=== PATIENT | male | born 1950 | race Caucasian/White ===

== ENCOUNTER 2024-05-16 20:22 | Emergency (ER) | payer MEDICARE, BC, SELFPAY ==
--- NOTE | ~2024-05-16 | XR_ITS ---
XR chest 1V portable Ordering provider: Franky Ramos History: 74 years Male with . CHEST PAIN . Comparison: None. FINDINGS: MEDIASTINUM: The cardiac silhouette is not enlarged. LUNGS: No infiltrates, effusions or pneumothorax. OTHER: No free air under the diaphragm. Degenerative changes of the spine. IMPRESSION: No acute cardiopulmonary pathology. Reviewed, dictated and finalized at location A. N FILTERER
--- NOTE | 2024-05-16 20:23 | ECG_ITS ---
Test Date: 2024-05-16 20:29:15 Measurements Intervals [place] Rate: 71 P: 10 MS: 124 QRS: -88 QRSD: 179 T: 38 QT: 442 QTc: 481 Interpretive Statements SINUS RHYTHM WITH OCCASIONAL VENTRICULAR PREMATURE COMPLEXES WITH OCCASIONAL SUPRAVENTRICULAR PREMATURE COMPLEXES RIGHT BUNDLE BRANCH BLOCK [120+ ms QRS DURATION, UPRIGHT V1, 40+ ms S IN I/aVL/V4/V5/V6] LEFT ANTERIOR FASCICULAR BLOCK [QRS AXIS <= -45, QR IN I, RS IN II] ABNORMAL ECG Electronically Signed On 05-17-2024 08:26:53 [employer]ISHING [employer]PECTOR by Chad Padilla M.D.
[2024-05-16 20:26] VITALS: BP 69/54; PULSE 78; RESP 18; TEMP 35.9; O2SAT 98
[2024-05-16 20:48] LABS: Basophils Percent Auto 0.2 % (0.2-1.2); Eosinophils Absolute Auto 0.1 K/mm3 (0-0.3); Eosinophils Percent Auto 1.1 % (0-4.4); Hemoglobin 14.1 g/dL (14.0-18.0); Immature Granulocyte Absolute 0.02 K/mm3 (0.00-0.031); Immature Granulocyte Percent A 0.5 % (0-0.5); Lymphocytes Absolute Auto 0.66 K/mm3 (0.9-3.2); Mean Corpuscular HGB Conc 34.4 g/dl (32-36); Mean Corpuscular Hemoglobin 30.9 pg (26-34); Mean Corpuscular Volume 89.9 fl (80-100); Mean Platelet Volume 9.3 fl (7.4-10.4); Monocytes Absolute Auto 0.3 K/mm3 (0.1-0.6); Monocytes Percent Auto 5.9 % (2.6-8.5); Neutrophils Absolute Auto 3.4 K/mm3 (1.3-6.7); Neutrophils Percent Auto 77.3 % (45.5-73.1); Platelet Count Result 105 k/mm3 (150-375); Red Blood Count 4.56 M/mm3 (4.6-6.20); Red Cell Distribution Width 15.2 % (11.5-14.5); White Blood Count 4.4 K/mm3 (4.5-10.0)
[2024-05-16 20:58] LABS: Alanine Aminotransferase 21 U/L (6-50); Alkaline Phosphatase 53 U/L (38-126); Anion Gap 10 mmol/L (4-12); Aspartate Amino Transferase 23 U/L (17-59); Blood Urea Nitrogen 52 mg/dL (9-20); Calcium 9.4 mg/dL (8.4-10.2); Carbon Dioxide 26 mmol/L (22-30); Chloride 98 mmol/L (98-107); Estimated CRCL calculation 37 ml/min; Estimated Glomerular Filt Rate 38; Glucose 127 mg/dL (65-110); Lipase 142 U/L (23-300); Potassium 3.9 mmol/L (3.4-5.0); Sodium 134 mmol/L (137-145)
[2024-05-16 20:59] LABS: INR 1.1; Prothrombin Time 14.3 Seconds (11.1-14.7)
[2024-05-16 21:00] LABS: Partial Thromboplastin Time 28.2 Seconds (22.3-36.8)
[2024-05-16] MEDS: SODIUM CHLORIDE 0.9% IV 1,000 ML 999 ML IV CONT ×2 (21:09→22:24)
[2024-05-16 21:10] VITALS: BP 78/54; PULSE 78; RESP 11; O2SAT 97
--- NOTE | 2024-05-16 21:19 | ED_ITS ---
HPI - General Adult General Chief complaint: Chest Pain Stated complaint: chest pain Time Seen by Provider: 05/16/24 20:58 History of Present Illness HPI narrative: 74 old male present to the emergency department for evaluation for an episode of chest pain. Patient does have a prior history of coronary disease and atrial fibrillation. Patient states that he did do some light shoveling earlier in the day and then approximately 3 hours later while he was at rest he had onset of heart palpitations with back pain associated lightheaded and dizziness. Patient states symptoms lasted approximately 20 minutes. EMS was called and patient was found to be hypotensive and bradycardic. Upon arrival emergency department patient states he is currently pain-free. Patient denies any current lightheaded or dizziness. Patient is still hypotensive upon arrival. Related Data Allergies Allergy/AdvReac Type Severity Reaction Status Date / Time Penicillins Allergy Mild Hives Verified 05/16/24 21:09 Review of Systems 2 Review of Systems: All systems reviewed & are unremarkable except as noted in HPI and below Exam 2 Narrative: APPEARANCE: Well appearing, no pain, no distress, well-nourished. HEAD: normocephalic, atraumatic. EYES: PERRLA/EOMI, conjunctivae clear. NOSE: Normal no drainage EARS:TMS clear with good light reflex. THROAT: Pharynx clear, no exudate. NECK: Supple. No adenopathy, no masses. RESPIRATORY: Airway patent, respirations nonlabored. Clear to auscultation bilaterally, no rales, rhonchi, wheezing. CARDIOVASCULAR: Regular rate and rhythm without murmurs rubs or gallops. ABDOMINAL: Soft, nontender, nondistended, normal bowel sounds MUSCULOSKELETAL: Moves all extremities. Strength/ROM intact, No edema, No calf tenderness. NEURO: Alert. Cranial nerves II through XII intact. Good gait. Good coordination SKIN: Warm, dry. Normal Color Course Vital Signs Vital signs: Vital Signs Temperature 96.7 F L 05/16/24 20: Pulse Rate 78 05/16/24 20: Respiratory Rate 18 05/16/24 20:26 Blood Pressure 69/54 L 05/16/24 20:26 Pulse Oximetry 98 05/16/24 20:26 Oxygen Delivery Room Air 05/16/24 20:26 Temperature 96.7 F L 05/16/24 20:26 Pulse Rate 72 05/16/24 23:16 Respiratory Rate 16 05/16/24 23:16 Blood Pressure 100/64 05/16/24 23:16 Pulse Oximetry 95 05/16/24 23:16 Oxygen Delivery Room Air 05/16/24 20:26 Medical Decision Making MDM Narrative Medical decision making narrative: [age] male history atrial fibrillation and coronary artery disease presented emergency department for evaluation for episode of lightheaded dizziness heart palpitations. Of with her emergency department patient is not in AFib with RVR but patient is hypotensive. Patient was treated with a L of IV fluids. Patient's blood pressure did improve mildly with rehydration. Patient is pain-free at this time. I did discuss the case with the hospitalist patient was accepted for admission for cardiac evaluation and rehydration. I discussed this with the patient and family in the strongly prefer to be discharged to home. Patient was treated with 2 L of IV fluids and ultimately patient preferred to be discharged home. Patient was alert and appropriate both patient and for where the risks of being discharged. Differential Diagnosis Differential Diagnosis: AFib, dehydration, ACS, NSTEMI Vital Signs Vital Signs: Vital Signs Temperature 96.7 F L 05/16/24 20:26 Pulse Rate 78 05/16/24 20:26 Respiratory Rate 18 05/16/24 20:26 Blood Pressure 69/54 L 05/16/24 20:26 Pulse Oximetry 98 05/16/24 20:26 Oxygen Delivery Room Air 05/16/24 20:26 Temperature 96.7 F L 05/16/24 20:26 Pulse Rate 72 05/16/24 23:16 Respiratory Rate 16 05/16/24 23:16 Blood Pressure 100/64 05/16/24 23:16 Pulse Oximetry 95 05/16/24 23:16 Oxygen Delivery Room Air 05/16/24 20:26 Lab Data Lab results reviewed: Yes I reviewed the patient's lab results. 05/16/24 20:40 05/16/24 20:40 Labs: Lab Results 05/16/24 Range/Units 20:40 WBC 4.4 L (4.5-10.0) K/mm3 RBC 4.56 L (4.6-6.20) M/mm3 Hgb 14.1 (14.0-18.0) g/dL Hct 41.0 L (42.0-52.0) % MCV 89.9 (80-100) fl MCH 30.9 (26-34) pg MCHC 34.4 (32-36) g/dl RDW 15.2 H (11.5-14.5) % Plt Count 105 L (150-375) k/mm3 MPV 9.3 (7.4-10.4) fl Immature Gran % (Auto) 0.5 (0-0.5) % Neut % (Auto) 77.3 H (45.5-73.1) % Lymph % (Auto) 15.0 L (18.3-44.2) % Forrest % (Auto) 5.9 (2.6-8.5) % Eos % (Auto) 1.1 (0-4.4) % Baso % (Auto) 0.2 (0.2-1.2) % Lymph # (Auto) 0.66 L (0.9-3.2) K/mm3 Forrest # (Auto) 0.3 (0.1-0.6) K/mm3 Eos # (Auto) 0.1 (0-0.3) K/mm3 Baso # (Auto) 0.0 (0.0-0.1) K/mm3 Abs Immat Gran (auto) 0.02 (0.00-0.031) K/mm3 Absolute Neuts (auto) 3.4 (1.3-6.7) K/mm3 Absolute Nucleated RBC 0.000 (0.0-0.012) K/mm3 Nucleated RBC % 0.0 (0.0-0.2) % PT 14.3 (11.1-14.7) Seconds INR 1.1 APTT 28.2 (22.3-36.8) Seconds Sodium 134 L (137-145) mmol/L Potassium 3.9 (3.4-5.0) mmol/L Chloride 98 (98-107) mmol/L Carbon Dioxide 26 (22-30) mmol/L Anion Gap 10 (4-12) mmol/L BUN 52 H (9-20) mg/dL Creatinine 1.78 H (0.7-1.3) mg/dL Estim Creat Clear Calc 37 ml/min Estimated GFR 38 L (59 - ) Glucose 127 H (65-110) mg/dL Calcium 9.4 (8.4-10.2) mg/dL Total Bilirubin 1.0 (0.2-1.3) mg/dL AST 23 (17-59) U/L ALT 21 (6-50) U/L Alkaline Phosphatase 53 (38-126) U/L Troponin I < 0.012 (0.000-0.034) ng/mL Total Protein 7.0 (6.3-8.2) g/dL Albumin 4.0 (3.5-5.1) g/dL Lipase 142 (23-300) U/L Imaging Data Radiologist's impression: Impressions Chest X-Ray 05/16/24 21:36 IMPRESSION: No acute cardiopulmonary pathology. Discharge Plan Discharge Clinical Impression: Chest pain, Heart palpitations, Acute hypotension, Acute kidney injury Patient Disposition: Home, Self-Care Condition: Stable Instructions: Antibiotic Form, Chest Pain (ED) Additional Instructions: You were offered admission for dehydration, hypotension further cardiac rule out but you preferred to be discharged to home. If you have any worsening symptoms please call or return to the emergency department. Have close follow-up with primary care physician for further outpatient cardiac testing and for rechecking your kidney function. Patient Language: Trin[place] Follow-up/Referrals: PHYSICIAN NOT ON STAFF,NONSTAFF [Primary Care Provider] - Quality HEART score for chest pain patients History: slightly suspicious ECG: normal Age: > or = to 65 years Risk factors: > or = to 3 risk factors of atherosclerotic disease Troponin: < or = to 1x normal limit Heart score: 4
[2024-05-16 21:29] LABS: Troponin I < 0.012 ng/mL (0.000-0.034)
[2024-05-16 22:51] VITALS: BP 104/64; PULSE 66; RESP 15; O2SAT 93
[2024-05-16 23:16] VITALS: BP 100/64; PULSE 72; RESP 16; O2SAT 95
== END 2024-05-16 23:17 | disposition home or self-care (01) ==
PROVIDERS: Emergency Provider Emergency Medicine
DX: R07.9 Chest pain, unspecified (principal); R00.2 Palpitations; I95.9 Hypotension, unspecified; N17.9 Acute kidney failure, unspecified; I25.10 Atherosclerotic heart disease of native coronary artery without angina pectoris; I48.91 Unspecified atrial fibrillation
CPT/HCPCS: 36415; 71045; 80053; 83690; 84484; 85025; 85610; 85730; 93005; 96360; 96361; 99284; J7030